=== PATIENT | female | born 1950 | race Caucasian/White ===

== ENCOUNTER 2016-08-25 09:27 | Emergency (ER) | payer MEDICARE, OTHER ==
[~2016-08-25 09:27] MED LIST: ADVIL200 M1 PO; ALPRAZOLAM; ALPRAZOLAM PO; AMOXICILLIN PO; BENADRYL PO; BENAZEPRIL; BENAZEPRIL HCL10 M1 PO; BENAZEPRIL HCL10 M2 PO; BENAZEPRIL HCL10 MG PO; BENAZEPRIL PO; FLEXERIL PO; FLEXERIL10 M1 PO; FLEXERIL10 MG PO; GENTAK3.5 G1 OP; IBUPROFEN600 MG PO; KEFLEX PO; LORATADINE PO; LORTAB 10-5001 EACH PO; LORTAB 5/500 TA1 TA2 PO; MEDROL4 MG/DOSE- PO; MOBIC PO; NAPROSYN500 MG PO; NEXIUM PO; ORUDIS75 M1 PO; PRILOSEC; PRILOSEC PO; PRILOSEC20 M1 PO; PRILOSEC20 MG PO; VICODIN 5/1 TAB 5/50 PO; XANAX; XANAX0.5 MG PO; XANAX1 MG PO
[2016-08-25 09:53] LABS: URINE SOURCE CLEAN CATCH
[2016-08-25 10:00] LABS: URINE APPEARANCE TURBID; URINE BLOOD NEG (NEG); URINE COLOR RED; URINE GLUCOSE NEG (NEG); URINE KETONE NEG (NEG); URINE LEUKOCYTE ESTERASE 3+ (NEG); URINE NITRATE POS (NEG); URINE PROTEIN TRACE (NEG)
[2016-08-25 10:02] LABS: URINE BACTERIA AUWI 1+ (NEGATIVE); URINE SQUAMOUS EPITHELIAL CELL FEW /[HPF]; UWBCS1 AUWI 100-200 (0-5)
[2016-08-25 10:08] LABS: URINE BILIRUBIN NEG (NEG)
== END 2016-08-25 10:36 | disposition home or self-care (01) ==
LOC: CED 09:27
PROVIDERS: Student in an Organized Health Care Education/Training Program
DX: N39.0 Urinary tract infection, site not specified (principal); F41.9 Anxiety disorder, unspecified; E11.9 Type 2 diabetes mellitus without complications; Z87.440 Personal history of urinary (tract) infections; Z88.2 Allergy status to sulfonamides; Z88.5 Allergy status to narcotic agent; Z88.1 Allergy status to other antibiotic agents
CPT/HCPCS: 81003; 87086; 87088; 99283

== ENCOUNTER 2016-08-27 22:46 | Emergency (ER) | payer MEDICARE, OTHER ==
--- NOTE | ~2016-08-27 | EKG ---
PATIENT: DANIELA HEATH UNIT #: [id number] Ventricular Rate: 59 BPM Atrial Rate: 59 BPM P-R Interval: 164 ms QRS Duration: 82 ms Q-T Interval: 460 ms QTC Calculation(Bezet): 455 ms P [place]: 30 degrees Calculated R [place]: 20 degrees Calculated T [place]: 32 degrees Diagnosis Line: Sinus bradycardia Diagnosis Line: Otherwise normal ECG Diagnosis Line: When compared with ECG of 05-MAY-2016 05:57, Diagnosis Line: No significant change was found Diagnosis Line: Confirmed by BROOKLYNN RODRIGUEZ MD ([id number]) on 08/28/2016 Diagnosis Line: 10:06:51 AM INTERPRETING MD: JENNIFER ROBLERO
--- NOTE | ~2016-08-27 | EKG ---
PATIENT: DANIELA HEATH UNIT #: [id number] Ventricular Rate: 59 BPM Atrial Rate: 59 BPM P-R Interval: 164 ms QRS Duration: 82 ms Q-T Interval: 460 ms QTC Calculation(Bezet): 455 ms P [place]: 30 degrees Calculated R [place]: 20 degrees Calculated T [place]: 32 degrees Diagnosis Line: Sinus bradycardia Baseline wander Diagnosis Line: Otherwise normal ECG Diagnosis Line: When compared with ECG of 05-MAY-2016 05:57, Diagnosis Line: No significant change was found Diagnosis Line: Reconfirmed by BROOKLYNN RODRIGUEZ MD ([id number]) on Diagnosis Line: 08/28/2016 10:07:04 AM INTERPRETING MD: JENNIFER ROBLERO
[2016-08-28 01:02] LABS: BASOPHIL% 0.7 % (0-2.5); EOSINOPHIL# 0.2 X10e3 (0-0.7); EOSINOPHIL% 2.2 % (0.0-7.0); LYMPHOCYTE# 2.3 X10e3 (1.0-3.5); LYMPHOCYTE% 31.1 % (17.0-45.0); MEAN CELL VOLUME 87.5 FL (83-96); MEAN CORPUSCULAR HEMOGLOBIN 28.6 PG (28-34); MEAN CORPUSCULAR HGB CONC 32.7 g/dL (30-36); MEAN PLATELET VOLUME 9.5 FL (6.5-11.5); MONOCYTE# 0.4 X10e3 (0-1.0); MONOCYTE% 5.4 % (3.0-12.0); NEUTROPHIL# 4.5 X10e3 (1.5-7.1); NEUTROPHIL% 60.6 % (40-75); PLATELET COUNT 174 X10e3 (140-420); RED BLOOD COUNT 4.91 X10e (3.90-5.30); RED CELL DISTRIBUTION WIDTH 13.6 % (11.0-15.5); WHITE BLOOD COUNT 7.4 X10e3 (4.0-10.5)
[2016-08-28 01:05] LABS: DIFF IND NO
[2016-08-28 01:17] LABS: URINE APPEARANCE TURBID; URINE BLOOD 1+ (NEG); URINE COLOR ORANGE; URINE GLUCOSE NEG (NEG); URINE KETONE NEG (NEG); URINE LEUKOCYTE ESTERASE 3+ (NEG); URINE NITRATE POS (NEG); URINE PROTEIN 1+ (NEG); URINE SPECIFIC GRAVITY 1.022 (1.003-1.035)
[2016-08-28 01:19] LABS: CULTURE INDICATED? YES; URINE BACTERIA AUWI 2+ (NEGATIVE); URINE SQUAMOUS EPITHELIAL CELL MANY /[HPF]; UWBCS1 AUWI INNUM (0-5)
[2016-08-28 01:20] LABS: ALBUMIN SERUM 4.2 g/dL (3.5-5.0); BILIRUBIN, DIRECT 0.1 mg/dL (0.0-0.2); BILIRUBIN,INDIRECT 0.6 mg/dL (0.0-0.9); BILIRUBIN,TOTAL 0.7 mg/dL (0.2-2.0); BUN/CREATININE RATIO 13.33; CALCIUM SERUM 9.6 mg/dL (8.4-10.2); CREATININE SERUM 0.9 mg/dL (0.6-1.4); GLOM FILT RATE Estimated 66.2 mL/min (>60); POTASSIUM 3.4 mmol/L (3.5-5.1); PROTEIN TOTAL SERUM 7.8 g/dL (6.0-8.3)
[2016-08-28 01:24] LABS: URINE BILIRUBIN POS (NEG)
[2016-08-28 02:16] LABS: POC - CKMB <1.0 ng/mL (0.0-7.9); POC - TROPONIN <0.05 ng/mL (<=0.05)
== END 2016-08-28 06:45 | disposition home or self-care (01) ==
LOC: CED 22:46
PROVIDERS: Nurse Practitioner Family
DX: F41.1 Generalized anxiety disorder (principal); N39.0 Urinary tract infection, site not specified; K21.9 Gastro-esophageal reflux disease without esophagitis; I10 Essential (primary) hypertension; Z87.440 Personal history of urinary (tract) infections; Z88.1 Allergy status to other antibiotic agents; Z88.2 Allergy status to sulfonamides; Z88.5 Allergy status to narcotic agent; Z79.899 Other long term (current) drug therapy
CPT/HCPCS: 36415; 80048; 80076; 81003; 82553; 84484; 85025; 87086; 87088; 93005; 96361; 96374; 99284; J0696

== ENCOUNTER 2016-11-05 19:37 | Emergency (ER) | payer MEDICARE, OTHER ==
[~2016-11-05] VITALS: Ht 157.5 cm; Wt 79.4 kg
== END 2016-11-05 20:30 | disposition left against medical advice (07) ==
LOC: CED 19:37
DX: Z53.21 Procedure and treatment not carried out due to patient leaving prior to being seen by health care provider (principal)

== ENCOUNTER 2016-12-31 11:33 | Emergency (ER) | payer MEDICARE, OTHER ==
[~2016-12-31] VITALS: Ht 157.5 cm; Wt 79.4 kg
[2016-12-31 12:14] LABS: URINE SOURCE CLEAN CATCH
[2016-12-31 12:20] LABS: URINE APPEARANCE CLEAR; URINE BILIRUBIN NEG (NEG); URINE BLOOD NEG (NEG); URINE COLOR YELLOW; URINE GLUCOSE NEG (NEG); URINE KETONE NEG (NEG); URINE LEUKOCYTE ESTERASE 1+ (NEG); URINE NITRATE NEG (NEG); URINE PROTEIN NEG (NEG); URINE SPECIFIC GRAVITY 1.012 (1.003-1.035); URINE UROBILINOGEN 0.2 MG/DL (NEG)
[2016-12-31 12:22] LABS: URBCS1 AUWI 0-2 /[HPF] (0-2); URINE BACTERIA AUWI NEG (NEGATIVE); URINE SQUAMOUS EPITHELIAL CELL NONE SEEN /[HPF]
[2016-12-31 12:27] LABS: CULTURE INDICATED? NO
== END 2016-12-31 13:05 | disposition home or self-care (01) ==
LOC: CED 11:33
PROVIDERS: Emergency Medicine
DX: R30.0 Dysuria (principal); M54.5 Low back pain; I10 Essential (primary) hypertension; F41.9 Anxiety disorder, unspecified; Z98.51 Tubal ligation status; Z90.49 Acquired absence of other specified parts of digestive tract; Z88.5 Allergy status to narcotic agent; Z88.2 Allergy status to sulfonamides; Z88.1 Allergy status to other antibiotic agents
CPT/HCPCS: 81003; 99283